=== PATIENT | male | born 1990 | race African-American/Black ===

== ENCOUNTER 2016-10-16 08:14 | Emergency (ER) | payer MEDICAID, OTHER ==
[~2016-10-16] VITALS: Ht 170.2 cm; Wt 68.0 kg
[~2016-10-16 08:14] MED LIST: IBUP-1542 PO
[2016-10-16 08:18] VITALS: Ht 170.2 cm; Wt 68.0 kg
[2016-10-16] MEDS ORDERED: AMOX1TAB10 PO (08:48)
[2016-10-16] MEDS ORDERED: ACET500C5 PO (08:49)
[2016-10-16] MEDS ORDERED: IBUP800T25 PO (09:03)
--- NOTE | 2016-10-16 09:03 | ERD ---
ER Documentation Chief Complaint Date/Time DATE: 10/16/16 TIME: 08:59 Chief Complaint dental pain,gum swelling HPI Patient is a 25-year-old male who presents the ED with right tooth pain x 6 months. He states that he has pain on and off he complains of tooth in his right molar. He denies fever or chills. Denies headache or dizziness. Denies vision pain. Denies pain in his neck. Denies nausea, vomiting or diarrhea. He states that he has not seen a dentist since he is waiting on his insurance to kick in regarding his job. He states that he has pain when he chews on that side. Denies gum pain. ROS All systems reviewed and are negative except as per history of present illness. Medications Home Meds Active Scripts Acetaminophen* (Tylophen*) 500 Mg Capsule, 1 CAP PO Q6H Y for PAIN AND OR ELEVATED TEMP, #20 CAP Prov:BOB GARCIA PA-C 10/16/16 Amoxicillin/Potassium Clav (Amox-Clav 875-125 mg Tablet) 875-125 mg Tab, 1 TAB PO BID for 7 Days, #14 TAB Prov:BOB GARCIA PA-C 10/16/16 Ibuprofen* (Motrin*) 600 Mg Tab, 600 MG PO Q8 for 10 Days, #30 TAB 0 Refills Prov:AUGUSTO GODINEZ PA-C 06/01/16 Allergies Allergies: Coded Allergies: No Known Allergy (Unverified , 10/16/16) PMhx/Soc Medical and Surgical Hx: pt denies Medical Hx, pt denies Surgical Hx History of Surgery: No Anesthesia Reaction: No Hx Neurological Disorder: No Hx Respiratory Disorders: No Hx Cardiac Disorders: No Hx Psychiatric Problems: No Hx Miscellaneous Medical Probl: No Hx Alcohol Use: No Hx Substance Use: Yes (3x/day marijuana use) Hx Tobacco Use: No Smoking Status: Never smoker Physical Exam Vitals Vital Signs Date Time Temp Pulse Resp B/P Pulse Ox O2 Delivery O2 Flow Rate FiO2 10/16/16 08:18 96.8 88 18 128/65 98 Physical Exam GENERAL: Well-developed, well-nourished male. Appears in no acute distress. HEAD: Normocephalic, atraumatic. EYES: Pupils are equally reactive bilaterally. EOMs grossly intact. No conjunctival erythema. ENT: Moist mucous membranes. No uvula deviation. No kissing tonsils. No exudates. pain with tongue depressor test. pain to tooth. no swelling. no cheek or upper molar pain. NECK: Supple. No lymphadenopathy or thyromegaly. No meningismus. negative kernig. negative brudinski. LUNG: Clear to auscultation bilaterally. No rhonchi, wheezing, rales or coarse breath sounds. HEART: Regular rate and rhythm. No murmurs, rubs or gallops. SKIN: Normal color. Warm and dry. No rashes or lesions. Capillary refill < 2 seconds Procedures/MDM ER COURSE: I kept the patient and/or family informed of laboratory and diagnostic imaging results throughout the emergency room course. MEDICAL DECISION MAKING: This is a 25-year-old male who presents with right lower tooth pain. Vital signs were reviewed. Patient is afebrile. Patient is not hypoxic. Patient is not toxic or ill-appearing. Patient likely has tooth pain of uncertain etiology. Low suspicion for necrotizing fasciitis, SJS, toxic epidermal necrolysis, Kawasaki, erythema multiforme, gangrene, scarlet fever, meningococcemia, sepsis, anaphylaxis, sepsis, deep space infection, or foreign body. DISCHARGE: At this time, patient is stable for discharge and outpatient management with no new complaints during the ER course. Patient was sent home with Tylenol, Augmentin and ibuprofen.. A dentist this week. Patient will be discharged home with instructions to recheck for new or worsening symptoms such as fever, nausea , weakness, LOC and to follow up with primary care in the next 1-2 days. Patient was advised to return to the ER for any new or worsening symptoms. Plan was discussed and patient and/or family understands and agrees. Home instructions were given. Departure Diagnosis: Primary Impression: Toothache Condition: Stable Patient Instructions: Dental Pain Referrals: COMMUNITY CLINICS YOU HAVE RECEIVED A MEDICAL SCREENING EXAM AND THE RESULTS INDICATE THAT YOU DO NOT HAVE A CONDITION THAT REQUIRES URGENT TREATMENT IN THE EMERGENCY DEPARTMENT. FURTHER EVALUATION AND TREATMENT OF YOUR CONDITION CAN WAIT UNTIL YOU ARE SEEN IN YOUR DOCTORS OFFICE WITHIN THE NEXT 1-2 DAYS. IT IS YOUR RESPONSIBILITY TO MAKE AN APPOINTMENT FOR FOLOW-UP CARE. IF YOU HAVE A PRIMARY DOCTOR --you should call your primary doctor and schedule an appointment IF YOU DO NOT HAVE A PRIMARY DOCTOR YOU CAN CALL OUR PHYSICIAN REFERRAL HOTLINE AT IF YOU CAN NOT AFFORD TO SEE A PHYSICIAN YOU CAN CHOSE FROM THE FOLLOWING OUR [facility] CL[facility] [address] [facility] [address] [facility] [facility] [address] [facility] [address] [facility] [address] [facility]. [facility]. [address] [facility]SPECIALTIES Additional Instructions: Call your primary care doctor TOMORROW for an appointment during the next 1-2 days.See the doctor sooner or return here if your condition worsens before your appointment time. You need to see a dentist within one week. BOB GARCIA PA-C Oct 16, 2016 09:03
== END 2016-10-16 09:22 | disposition home or self-care (01) ==
LOC: FTE 08:14
DX: K08.89 Other specified disorders of teeth and supporting structures (principal)
CPT/HCPCS: 99283

== ENCOUNTER 2016-11-06 11:48 | Inpatient (IN) | payer OTHER ==
[~2016-11-06] VITALS: Ht 170.2 cm; Wt 65.5 kg
[2016-11-06] VITALS (21 sets, daily range): BP systolic 122–142; BP diastolic 63–75; PULSE 50–64; RESP 16–20; TEMP 98.7; Ht 170.2 cm; Wt 65.5 kg
[~2016-11-06 11:48] MED LIST changes: +ACET500C5 PO; +AMOX1TAB10 PO; +IBUP800T25 PO
[2016-11-06] MEDS ORDERED: SOD CHLORIDE 0.9% 1,000 ML IV STA (13:01)
[2016-11-06] MEDS ORDERED: ONDANSETRON 4 MG INJ IV STA (13:01)
[2016-11-06] MEDS ORDERED: FAMOTIDINE 20 MG INJ IV STA (13:01)
[2016-11-06] MEDS ORDERED: KETOROLAC 30 MG INJ IV STA (13:01)
[2016-11-06 13:39] LABS: ADD SCAN DIFF NO
[2016-11-06 13:43] LABS: BASOPHIL # 0.1 10^3/ul (0.0-0.1); BASOPHILS % 0.4 % (0.0-2.0); EOSINOPHILS % 0.2 % (0.0-7.0); HEMATOCRIT 45.6 % (42.0-52.0); HEMOGLOBIN 15.3 g/dl (14.0-18.0); LYMPHOCYTES # 1.8 10^3/ul (0.8-2.9); LYMPHOCYTES % 15.5 % (15.0-51.0); MEAN CORPUSCULAR HEMOGLOBIN 29.1 pg (29.0-33.0); MEAN CORPUSCULAR HGB CONC 33.6 g/dl (32.0-37.0); MEAN CORPUSCULAR VOLUME 86.7 fl (82.0-101.0); MEAN PLATELET VOLUME 9.6 fl (7.4-10.4); MONOCYTE # 0.6 10^3/ul (0.3-0.9); MONOCYTES % 5.4 % (0.0-11.0); NEUTROPHIL # 9.2 10^3/ul (1.6-7.5); NEUTROPHILS % 78.2 % (39.0-77.0); PLATELET COUNT 393 10^3/UL (140-415); RED BLOOD COUNT 5.26 10^6/ul (4.70-6.10); RED CELL DISTRIBUTION WIDTH 12.1 % (11.5-14.5); WHITE BLOOD COUNT 11.8 10^3/ul (4.8-10.8)
[2016-11-06 13:46] LABS: ADD UMIC NO; URINE BILIRUBIN (Dip) 1+ (NEGATIVE); URINE BLOOD (Dip) NEGATIVE (NEGATIVE); URINE COLOR YELLOW (YELLOW); URINE GLUCOSE (Dip) NEGATIVE (NEGATIVE); URINE KETONES (Dip) 15 (NEGATIVE); URINE LEUKOCYTE ESTERASE (Dip) NEGATIVE (NEGATIVE); URINE NITRITE (Dip) NEGATIVE (NEGATIVE); URINE TOTAL PROTEIN (Dip) NEGATIVE (NEGATIVE); URINE UROBILINOGEN (Dip) 0.2 E.U./dL (0.1-1.0)
[2016-11-06 13:51] LABS: POTASSIUM 3.9 mmol/L (3.5-5.1)
[2016-11-06 13:53] LABS: ALBUMIN/GLOBULIN RATIO 1.28; BILIRUBIN,INDIRECT 0.6 mg/dl (0-1.1); BILIRUBIN,TOTAL 0.6 mg/dl (0.2-1.3); CREATININE 1.13 mg/dl (0.61-1.24); TOTAL PROTEIN 8.9 g/dl (6.1-8.1)
[2016-11-06 13:54] LABS: CALCIUM 10.2 mg/dl (8.4-10.2)
[2016-11-06 13:58] LABS: ICTOTEST POSITIVE (NEGATIVE)
--- NOTE | 2016-11-06 14:07 | RADRPT ---
PROCEDURE: CT Abdomen and Pelvis without contrast. CLINICAL INDICATION: Abdominal pain. Nausea and vomiting. TECHNIQUE: CT scan of the abdomen and pelvis without contrast was performed on a multi-slice CT sc [facility] without intravenous contrast. Coronal and sagittal reformatted images were obtained from the axial source images. Images were reviewed on a high-resolution PACS workstation. One or more of the following does reduction techniques were used: Automated exposure control; adjustment of the mA an d/or kV according to patient size; use of the aorta of reconstruction technique. The total exam CTD I equals 5.81 mGy and the total exam DLP equals 311.25 mGy-cm. COMPARISON: None available. FINDINGS: The lung bases are clear. Heart size is normal, and there is no evidence of pericardial thickening or effusion. Evaluation of the abdominal contents is limited by lack of intravenous and oral contrast combined wi th paucity of abdominal fat The liver, spleen, and pancreas are normal given limitations of a noncontrast CT examination. The g allbladder is normal. The adrenal glands are normal. The kidneys without renal calculus or hydronephrosis. The aorta is of normal caliber. There is no retroperitoneal lymph node enlargment. There is no evidence of large or small bowel obstruction. There is scattered contrast within the co cedric likely from recent oral administration. There is an appendicolith in the right lower quadrant. The appendix appears distended and thick-walled measuring up to 1.3 cm, best seen on coronal imagin g. There are no obvious adjacent inflammatory changes, however there is suggestion of subtle periap pendiceal inflammation. There is small to moderate pelvic free fluid. No enlarged pelvic sidewall lymph nodes are seen. The bladder is decompressed and collapsed. Ther e is small to moderate pelvic free fluid. The inguinal regions are unremarkable. The bones are intact. IMPRESSION: 1. Study limited by lack of intravenous and oral contrast combined with paucity of abdominal fat. 2. Right lower quadrant appendicolith with associated dilated, fluid-filled, and thick-walled appen jazmin. No obvious adjacent inflammatory changes are present, however there is mild to moderate pelvic free fluid, likely reactive in nature. These findings are compatible with acute appendicitis in th e appropriate clinical setting. If clinical presentation is equivocal, consider repeating CT with i ntravenous and oral contrast. 3. Contrast identified within the colon likely from recent oral administration. Recommend correlat ion with recent outside imaging. RPTAT: KK .Neptali Merida MD, MD Date Time Electronically viewed and signed by .Neptali Merida MD, MD on 11/06/2016 14:07 .B/
[2016-11-06] MEDS ORDERED: ERTAPENEM SODIUM 1 GM in SOD CHLORIDE 0.9% 100 ML IVPB ONE (15:00)
[2016-11-06] MEDS ORDERED: SOD CHLORIDE 0.9% 1,000 ML IV SCH (18:38)
[2016-11-06] MEDS ORDERED: ACETAMINOPHEN 325 MG TAB PO PRN ×2 (19:00)
[2016-11-06] MEDS ORDERED: ALBUTEROL/IPRATROPIUM (NEB) 3 ML AMP HHN PRN (19:00)
[2016-11-06] MEDS ORDERED: ONDANSETRON 4 MG INJ IV PRN ×2 (19:00)
[2016-11-06] MEDS ORDERED: NACL 0.9% 3 ML SYG IV SCH (19:00)
[2016-11-06] MEDS ORDERED: hydrALAzine 20 MG INJ IV PRN (19:00)
[2016-11-06] MEDS ORDERED: DOCUSATE SODIUM 100 MG CAP PO PRN (19:00)
[2016-11-06] MEDS ORDERED: MAGNESIUM HYDROXIDE 30ML CUP PO PRN (19:00)
[2016-11-06] MEDS ORDERED: LORAZEPAM 2 MG INJ IV PRN (19:00)
[2016-11-06] MEDS ORDERED: NA PHOSPHATE/BIPHOS 133 ML ENEMA PR PRN (19:00)
[2016-11-06] MEDS ORDERED: NITROGLYCERIN (SL) 0.4 MG TAB SL PRN (19:00)
[2016-11-06 19:22] LABS: INR 1.11; PROTIME 14.3 Sec (12.2-14.2); PT RATIO 1.1
--- NOTE | 2016-11-06 19:27 | ERD ---
ER Documentation Chief Complaint Date/Time DATE: 11/06/16 TIME: 19:23 Chief Complaint AP STARTED X 1 WEEK AGO N/V HPI This patient is a 25-year-old male with no significant medical history presenting to the emergency department for nausea and vomiting ongoing for the past 3 days. The patient had 3 episodes of vomiting today which was yellow in color. The patient also reports right lower quadrant pain which is been ongoing for the past week and has been worsening progressively. The patient took Vicodin which he had from a past prescription which mildly relieved his symptoms. The patient denies any chest pain, shortness of breath, fevers, or other specific symptoms. ROS All systems reviewed and are negative except as per history of present illness. Medications Home Meds Active Scripts Ibuprofen* (Motrin*) 800 Mg Tab, 800 MG PO Q6, #30 TAB Prov:BOB GARCIA PA-C 10/16/16 Acetaminophen* (Tylophen*) 500 Mg Capsule, 1 CAP PO Q6H Y for PAIN AND OR ELEVATED TEMP, #20 CAP Prov:BOB GARCIA PA-C 10/16/16 Amoxicillin/Potassium Clav (Amox-Clav 875-125 mg Tablet) 875-125 mg Tab, 1 TAB PO BID for 7 Days, #14 TAB Prov:BOB GARCIA PA-C 10/16/16 Ibuprofen* (Motrin*) 600 Mg Tab, 600 MG PO Q8 for 10 Days, #30 TAB 0 Refills Prov:AUGUSTO GODINEZ PA-C 06/01/16 Allergies Allergies: Coded Allergies: No Known Allergy (Unverified , 10/16/16) PMhx/Soc Medical and Surgical Hx: pt denies Medical Hx, pt denies Surgical Hx History of Surgery: No Anesthesia Reaction: No Hx Neurological Disorder: No Hx Respiratory Disorders: No Hx Cardiac Disorders: No Hx Psychiatric Problems: No Hx Miscellaneous Medical Probl: No Hx Alcohol Use: No Hx Substance Use: Yes (3x/day marijuana use) Hx Tobacco Use: No Smoking Status: Never smoker FmHx Noncontributory for chief complaint Physical Exam Vitals Vital Signs Date Time Temp Pulse Resp B/P Pulse Ox O2 Delivery O2 Flow Rate FiO2 11/06/16 19:15 98.7 53 19 145/78 100 Room Air 11/06/16 17:20 98.4 93 14 126/82 100 Room Air 11/06/16 11:49 97.4 54 18 124/71 100 Physical Exam Const: Resting comfortably in no acute distress Head: Atraumatic Eyes: Normal Conjunctiva ENT: Normal External Ears, Nose and Mouth. Neck: Full range of motion..~ No meningismus. Resp: Clear to auscultation bilaterally Cardio: Regular rate and rhythm, no murmurs Abd: There is right lower quadrant tenderness to palpation with rebound and guarding. Positive Rovsing sign. Positive obturator sign. Skin: No petechiae or rashes Back: No midline or flank tenderness Ext: No cyanosis, or edema Neur: Awake and alert Psych: Normal Mood and Affect Result Diagram: 11/06/16 1320 11/06/16 1320 Results 24 hrs Laboratory Tests Test 11/06/16 13:15 11/06/16 13:20 11/06/16 18:50 Urine Bilirubin 1+ Urine Clarity CLEAR Urine Color YELLOW Urine Glucose NEGATIVE% Urine Hemoglobin NEGATIVE Urine Ictotest POSITIVE Urine Ketones 15 Urine Leukocyte Esterase NEGATIVE Urine Nitrite NEGATIVE Urine Specific [place] 1.025 Urine Total Protein NEGATIVE Urine Urobilinogen 0.2 E.U./dL Urine pH 6.0 Alanine Aminotransferase (ALT/SGPT) 22IU/L Albumin 5.0g/dl Albumin/Globulin Ratio 1.28 Alkaline Phosphatase 70IU/L Anion Gap 25 Aspartate Amino Transf (AST/SGOT) 24IU/L Basophils # 0.110^3/ul Basophils % 0.4% Blood Urea Nitrogen 16mg/dl Calcium Level 10.2mg/dl Carbon Dioxide Level 27mmol/L Chloride Level 101mmol/L Creatinine 1.13mg/dl Direct Bilirubin 0.00mg/dl Eosinophils # 0.010^3/ul Eosinophils % 0.2% Globulin 3.90g/dl Glucose Level 76mg/dl Hematocrit 45.6% Hemoglobin 15.3g/dl Indirect Bilirubin 0.6mg/dl Lipase 56U/L Lymphocytes # 1.810^3/ul Lymphocytes % 15.5% Mean Corpuscular Hemoglobin 29.1pg Mean Corpuscular Hemoglobin Concent 33.6g/dl Mean Corpuscular Volume 86.7fl Mean Platelet Volume 9.6fl Monocytes # 0.610^3/ul Monocytes % 5.4% Neutrophils # 9.210^3/ul Neutrophils % 78.2% Nucleated Red Blood Cells # 0.010^3/ul Nucleated Red Blood Cells % 0.0/100WBC Platelet Count 95381^3/UL Potassium Level 3.9mmol/L Red Blood Count 5.2610^6/ul Red Cell Distribution Width 12.1% Sodium Level 149mmol/L Total Bilirubin 0.6mg/dl Total Protein 8.9g/dl White Blood Count 11.810^3/ul Activated Partial Thromboplast Time Pending INR International Normalized Ratio 1.11 Prothrombin Time 14.3Sec Prothrombin Time Ratio 1.1 Current Medications Medications (Trade) Dose Ordered Sig/Brady Route PRN Reason Start Time Stop Time Status Last Admin Dose Admin Sodium Chloride (NS) 1,000 ml @ 1,000 mls/hr Q1H STAT IV 11/06/16 13:01 11/06/16 14:00 DC 11/06/16 13:20 Ondansetron HCl (Zofran Inj) 4 mg ONCE STAT IV 11/06/16 13:01 11/06/16 13:04 DC 11/06/16 13:20 Famotidine (Pepcid Iv) 20 mg ONCE STAT IV 11/06/16 13:01 11/06/16 13:04 DC 11/06/16 13:20 Ketorolac Tromethamine 30 mg 30 mg ONCE STAT IV 11/06/16 13:01 11/06/16 13:04 DC 11/06/16 13:20 Ertapenem/Sodium Chloride (Invanz/NS) 100 ml @ 200 mls/hr ONCE ONCE IVPB 11/06/16 15:00 11/06/16 15:29 DC 11/06/16 14:54 IV Flush (NS 3 ml) 3 ml PER PROTOCOL IV 11/06/16 19:00 Ondansetron HCl (Zofran Inj) 4 mg Q6H PRN IV NAUSEA AND/OR VOMITING 11/06/16 19:00 Acetaminophen (Tylenol Tab) 650 mg Q6H PRN PO PAIN LEVEL 1-3 OR FEVER 11/06/16 19:00 Acetaminophen/ Hydrocodone Bitart (Kenvil (5/325)) 1 tab Q6H PRN PO MODERATE PAIN LEVEL 4-6 11/06/16 19:00 Morphine Sulfate (morphine) 2 mg Q4H PRN IV SEVERE PAIN LEVEL 7-10 11/06/16 19:00 Docusate Sodium (Colace) 100 mg Q12H PRN PO CONSTIPATION 11/06/16 19:00 Magnesium Hydroxide (Milk Of Mag) 30 ml DAILY PRN PO CONSTIPATION 11/06/16 19:00 Sodium Biphosphate/ Sodium Phosphate (Fleet Enema) 133 ml DAILY PRN TN CONSTIPATION 11/06/16 19:00 Pantoprazole (Protonix Tab) 40 mg DAILY@06 PO 11/07/16 06:00 Heparin Sodium (Porcine) 5000 unit 5,000 unit Q12 SC 11/06/16 21:00 Sodium Chloride (1/2 NS) 1,000 ml @ 75 mls/hr [id number] IV 11/06/16 18:33 Lorazepam (Ativan) 0.5 mg Q6H PRN IV ANXIETY 11/06/16 19:00 Albuterol/ Ipratropium 3 ml 3 ml Q4H RESP THERAPY PRN HHN SHORTNESS OF BREATH 11/06/16 19:00 Piperacillin Sod/ Tazobactam Sod (Zosyn 3.375gm/ 100 ml (Pmx)) 100 ml @ 200 mls/hr Q6 IVPB 11/07/16 00:00 Hydralazine HCl (Apresoline) 10 mg Q6H PRN IV ELEVATED BLOOD PRESSURE 11/06/16 19:00 Clonidine (Catapres) 0.1 mg Q6H PRN PO ELEVATED BLOOD PRESSURE 11/06/16 19:00 Nitroglycerin 1 tab 1 tab Q5M PRN SL ANGINA 11/06/16 19:00 Sodium Chloride (NS) 1,000 ml @ 80 mls/hr [id number] IV 11/06/16 18:38 11/07/16 07:07 Ondansetron HCl (Zofran Inj) 4 mg BRIDGE ORDER PRN IV NAUSEA AND/OR VOMITING 11/06/16 19:00 11/07/16 18:59 Acetaminophen (Tylenol Tab) 650 mg ER BRIDGE PRN PO MILD PAIN/FEVER 11/06/16 19:00 11/07/16 18:59 Procedures/[facility] EMERGENCY DEPARTMENT COURSE / MEDICAL DECISION MAKING: This is a 25-year-old male who comes to the emergency room secondary to complaints of abdominal pain, nausea, vomiting. The patient was given IV fluids, IV antibiotics, IV Zofran, IV Toradol in the department. On re-evaluation, the patient was feeling improved. Lab results reviewed and showed slight leukocytosis with left shift. There were no signs of anemia. Sodium was slightly elevated but not marked. UA results reviewed and showed no signs of acute urinary tract infection. Radiology: PROCEDURE: CT Abdomen and Pelvis without contrast. CLINICAL INDICATION: Abdominal pain. Nausea and vomiting. TECHNIQUE: CT scan of the abdomen and pelvis without contrast was performed on a multi-slice CT scanner without intravenous contrast. Coronal and sagittal reformatted images were obtained from the axial source images. Images were reviewed on a high-resolution PACS workstation. One or more of the following does reduction techniques were used: Automated exposure control; adjustment of the mA and/or kV according to patient size; use of the aorta of reconstruction technique. The total exam CTDI equals 5.81 mGy and the total exam DLP equals 311.25 mGy-cm. COMPARISON: None available. FINDINGS: The lung bases are clear. Heart size is normal, and there is no evidence of pericardial thickening or effusion. Evaluation of the abdominal contents is limited by lack of intravenous and oral contrast combined with paucity of abdominal fat The liver, spleen, and pancreas are normal given limitations of a noncontrast CT examination. The gallbladder is normal. The adrenal glands are normal. The kidneys without renal calculus or hydronephrosis. The aorta is of normal caliber. There is no retroperitoneal lymph node enlargment. There is no evidence of large or small bowel obstruction. There is scattered contrast within the colon likely from recent oral administration. There is an appendicolith in the right lower quadrant. The appendix appears distended and thick-walled measuring up to 1.3 cm, best seen on coronal imaging. There are no obvious adjacent inflammatory changes, however there is suggestion of subtle periappendiceal inflammation. There is small to moderate pelvic free fluid. No enlarged pelvic sidewall lymph nodes are seen. The bladder is decompressed and collapsed. There is small to moderate pelvic free fluid. The inguinal regions are unremarkable. The bones are intact. IMPRESSION: 1. Study limited by lack of intravenous and oral contrast combined with paucity of abdominal fat. 2. Right lower quadrant appendicolith with associated dilated, fluid-filled, and thick-walled appendix. No obvious adjacent inflammatory changes are present , however there is mild to moderate pelvic free fluid, likely reactive in nature. These findings are compatible with acute appendicitis in the appropriate clinical setting. If clinical presentation is equivocal, consider repeating CT with intravenous and oral contrast. 3. Contrast identified within the colon likely from recent oral administration. Recommend correlation with recent outside imaging. RPTAT: KK .Neptali Merida MD, MD Date Time Electronically viewed and signed by .Neptali Merida MD, MD on 2016 14:07 The primary diagnosis is appendicitis. Care for this patient was discussed with and assumed by Dr. Huerta, attending ED physician. Dr. Huerta spoke with the admitting physician and the surgeon. Departure Diagnosis: Primary Impression: Acute appendicitis Additional Impression: Nausea & vomiting MARYJANE ANDERSON PA-C Nov 06, 2016 19:27
--- NOTE | 2016-11-06 19:53 | HP ---
DATE OF ADMISSION: 11/06/2016 CHIEF COMPLAINT: Abdominal pain. HISTORY OF PRESENT ILLNESS: A 25-year-old male, no significant past medical history. He has been h aving 1 week of abdominal pain getting progressively worse. He also had some nausea and vomiting sy mptoms, nonbilious, nonbloody. Symptoms became worse over the last 3 days. He has never had these symptoms before. No headaches, dizziness, loss of consciousness. No upper or lower GI bleeding, no diarrhea, no constipation. No fevers or chills. When he came in, he had a CT scan abdomen and pel vis performed that does show acute appendicitis, and the surgeon was called to come evaluate the pat ient, which is pending. PAST MEDICAL HISTORY: Stated above. ALLERGIES: NO KNOWN DRUG ALLERGIES. HOME MEDICINES: None. PAST SURGICAL HISTORY: None. FAMILY HISTORY: Noncontributory. SOCIAL HISTORY: Negative for smoking, drinking, IV drug abuse. PHYSICAL EXAMINATION: VITAL SIGNS: T-max 98.4, pulse 54 to 92, respirations 14 to 18, blood pressure is 126/82, saturatin g 100% on room air. GENERAL: The patient lying in bed, answering questions. No acute distress. HEENT: Pupils equal, round, react to light. Extraocular muscles intact. NECK: Supple. No thyromegaly. LUNGS: Clear to auscultation bilaterally. CARDIOVASCULAR: S1, S2 heard. No rubs, gallops. ABDOMEN: There is tenderness to palpation in epigastric area. MUSCULOSKELETAL: No lower extremity edema bilaterally. NEUROLOGIC: No focal deficits. LABORATORIES: WBC 11.8. The rest of the CBC is normal. Sodium 149. The rest of the comprehensive metabolic panel is essentially normal. His lipase is 56. UA shows negative nitrites, negative paramjit kocyte esterase. IMAGING: Again, CT abdomen and pelvis shows specifically right lower quadrant appendicolith with as sociated dilated, fluid-filled, thick-walled appendix. No obvious adjacent inflammatory changes are present, but there is mild to moderate pelvic free fluid, likely reactive in nature compatible with acute appendicitis. ASSESSMENT AND PLAN: A 25-year-old male coming in with abdominal pain for 1 week, nausea, vomiting with signs of acute appendicitis. 1. Abdominal pain secondary to acute appendicitis. Admit him to med/surg floor. Will get a genera l surgery consult, give him antiemetic medicines and pain control medications as well. We will chec k TSH, A1c, lipid panel. 2. For gastrointestinal prophylaxis, PPI. Deep venous thrombosis prophylaxis, heparin subcutaneous ly. Dictated By: OLIVIA HENDRICKSON Conf#: [id number] DID#: [id number]
[2016-11-06] MEDS ORDERED: BUPIVACAINE 0.25%/EPI (SDV) 30 ML INJ ONE (20:37)
[2016-11-06] MEDS ORDERED: LIDOCAINE 1% (MPF) 30 ML INJ ONE (20:37)
[2016-11-06] MEDS ORDERED: FENTAnyl 50 MCG/ML VIAL ONE (20:46)
--- NOTE | 2016-11-06 20:50 | CONS ---
DATE OF ADMISSION: 11/06/2016 DATE OF CONSULTATION: 11/06/2016 TYPE OF CONSULTATION: Surgical. REFERRING PHYSICIAN: Kaleigh Davison DO CHIEF COMPLAINT 1. Abdominal pain. 2. Appendicitis with possible perforation. 3. Leukocytosis. 4. Hypernatremia. HISTORY OF PRESENT ILLNESS: Mr. Gerda Gardner is a 25-year-old male, otherwise mostly healthy, wh o presents with a week of abdominal pain that has worsened over the past few days, associated with n ausea, vomiting and chills. No fevers. No chest pain or shortness of breath. No visual or neurolo gic changes. No dysuria. Bowel function present. No trauma. No sick contacts. No previous histo ry of the same. No blood per mouth or rectum. In the emergency room, he was found to be afebrile with stable and normal vitals; however, with mild leukocytosis and CT diagnosis of acute appendicitis with appendicolith and fluid in the pelvis. Izaguirre rgical consult is obtained and patient is admitted on antibiotics. PAST MEDICAL HISTORY 1. Right knee injury. 2. Abdominal pain times a week. 3. Nausea, vomiting times a week. 4. Mild leukocytosis. 5. Acute appendicitis. 6. Fluid in the pelvis with possible appendiceal perforation and abscess. 7. Hypernatremia. PAST SURGICAL HISTORY: Denies. MEDICATIONS: Denies. ALLERGIES: DENIES. SOCIAL HISTORY: Smokes a joint of marijuana 3 times a week. No other recreational drugs. No tobac co. Her social EtOH. FAMILY HISTORY: Noncontributory. REVIEW OF SYSTEMS: A 12-point review of systems negative unless addressed in HPI. PHYSICAL EXAMINATION VITAL SIGNS: Temperature 98.7, pulse 53, blood pressure ____ , satting 100% on room air. GENERAL: In no acute distress, comfortable, pleasant. HEENT: Pupils equal, reactive. No scleral icterus. Mucous membranes are moist. NECK: Supple. No JVD. Trachea midline. PULMONARY: Normal respiratory effort. No wheezing. CARDIAC: S1, S2 present. ABDOMEN: Soft, tender diffusely, mostly in the right lower quadrant. No guarding. No rebound. EXTREMITIES: No edema. VASCULAR: Cap refill less than 2 seconds. NEUROLOGIC: Alert, oriented, moves all extremities grossly. LABORATORY AND RADIOGRAPHIC: As per chart and HPI. ASSESSMENT AND PLAN Mr. Gerda Gardner is a 25-year-old male: 1. Abdominal pain with leukocytosis and CT findings are suggestive of acute appendicitis, with an a ppendicolith, probable perforation and questionable abscess. Continue antibiotics, IV fluids and we will proceed with appendectomy, washout, and possible drain placement. 2. Hypernatremia, probably dehydration. Continue judicious fluid management. 3. Regular marijuana smoker. The patient is encouraged to minimize use. Thank you very much for consulting me in this patient's care. Dictated By: KENYON HOLT/BARRON Conf#: [id number] DID#: [id number] CC: KALEIGH DAVISON DO;*End*
[2016-11-06] MEDS ORDERED: FENTAnyl 50 MCG/ML VIAL IV PRN ×2 (21:30)
[2016-11-06] MEDS ORDERED: MEPERIDINE 25 MG INJ IV PRN (21:30)
[2016-11-06] MEDS ORDERED: DIPHENHYDRAMINE 50 MG INJ IV PRN (21:30)
[2016-11-06] MEDS ORDERED: HYDROmorphONE (0.2 MG/ML) 10ML SYG IV PRN ×3 (21:30)
[2016-11-06] MEDS ORDERED: ROPIVACAINE 0.5 % 30 ML VIAL ONE (21:36)
[2016-11-06] MEDS ORDERED: ROCURONIUM 50 MG INJ ONE (21:36)
[2016-11-06] MEDS ORDERED: PROPOFOL 20 ML ONE (21:36)
[2016-11-06] MEDS ORDERED: GLYCOPYRROLATE 0.4 MG INJ ONE (21:36)
[2016-11-06] MEDS ORDERED: NEOSTIGMINE 3 MG/3 ML SYRINGE ONE (21:36)
[2016-11-06] MEDS ORDERED: SUCCINYLCHOLINE CHLORIDE 100 MG/5 ML SYG IV ONE (21:36)
[2016-11-06] MEDS ORDERED: LIDOCAINE 2% (SDV) 5 ML INJ ONE (21:36)
[2016-11-06] MEDS: SOD CHLORIDE 0.45% 1,000 ML IV SCH (23:43)
[2016-11-06] MEDS: PIPER-TAZO 3.375 GM IV (PMX) 100 ML IVPB SCH (23:44)
[2016-11-06] MEDS: HEPARIN 5,000 UNIT/0.5 ML SYG SC SCH (23:48)
[2016-11-07] VITALS (7 sets, daily range): BP systolic 104–127; BP diastolic 51–69; PULSE 53–65; RESP 16–19
[2016-11-07] MEDS: PIPER-TAZO 3.375 GM IV (PMX) 100 ML IVPB SCH ×4 (05:37→23:57)
[2016-11-07] MEDS: PANTOPRAZOLE (EC) 40 MG TAB PO SCH (05:38)
[2016-11-07] MEDS: HYDROCODONE/APAP (5/325) TAB PO PRN ×3 (05:42→20:02)
[2016-11-07 06:26] LABS: ALBUMIN 3.5 g/dl (3.3-4.9); POTASSIUM 4.1 mmol/L (3.5-5.1)
[2016-11-07 06:27] LABS: ADD SCAN DIFF NO
[2016-11-07 06:28] LABS: BILIRUBIN,INDIRECT 0.8 mg/dl (0-1.1); BILIRUBIN,TOTAL 0.8 mg/dl (0.2-1.3); CREATININE 1.22 mg/dl (0.61-1.24)
[2016-11-07 06:29] LABS: CALCIUM 8.7 mg/dl (8.4-10.2)
[2016-11-07 06:43] LABS: CHOL/HDL RATIO 2.4 RATIO
[2016-11-07] MEDS: morphine 2 MG INJ IV PRN ×3 (06:48→17:52)
[2016-11-07 06:59] LABS: MAGNESIUM 1.6 mg/dl (1.7-2.5)
--- NOTE | 2016-11-07 07:05 | OPR ---
DATE OF OPERATION: 11/06/2016 ____ PREOPERATIVE DIAGNOSIS: Acute appendicitis with possible perforation. POSTOPERATIVE DIAGNOSIS: Acute appendicitis. OPERATION PERFORMED: 1. Laparoscopic appendectomy. 2. Local anesthetic injection, 235[address]. SURGEON: Kenyon Orlando MD LICENSE ISSUER: None. ANESTHESIA: Local, regional and general. ANESTHESIOLOGIST: Kvng Umaña MD COMPLICATIONS: None. SPECIMEN: Appendix. ESTIMATED BLOOD LOSS: 5 mL PROSTHETICS: None. DRAINS: None. INDICATION: Per consultation note. Risks, benefits, alternatives were fully explained as my usual and customary. The patient has risk of recurrence of infection, abscess, leak, hematoma, seroma, he rnia formation, bowel injury, bladder injury, any other injuries in the abdomen, need for reoperatio ns or procedures, heart attack, stroke, PE, DVT, pneumonia, organ failures or . He understands and elected to proceed with surgery. DISPOSITION: Tolerated procedure well, extubated, transferred to recovery room in stable condition. All counts were correct at the end of the operation x2. PROCEDURE NOTE: The patient was brought in, placed supine on the operating table. SCDs were placed , preoperative antibiotics administered, and after induction of anesthesia, his left arm was tucked. All pressure points were well padded, and then he was prepped and draped in usual sterile fashion, and time-out was performed. He had already received antibiotics. Local anesthetic was injected at the incision sites. Incision was made supraumbilically, and a Casi ss needle was safely placed into the abdomen, and after negative ____ test, abdomen was insufflated to 15 mmHg with CO2. Laparoscopy was performed. No injuries were identified. Under direct visuali zation, another 5 was placed in left lower quadrant and 12 in suprapubic region. That port avoided the bladder widely. At the end of the operation, bilateral TAP procedure was performed by Anesthesia. The patient was placed in Trendelenburg and right side up, and investigation of the abdomen identifi ed some serous fluid in the pelvis. Appendix was enlarged. The base of the appendix and portion of the cecum where somewhat thickened and inflamed. However, at the base of the appendix, I did not i dentify any tumors or masses or obstruction that would deter me from using a stapler here. At this point, the mesoappendix was transected with a white load stapler with full hemostasis. The base of the appendix was also transected with a stapler with full formation of the sudhir. There was no ab normality identified. No separation identified. The sudhir were well taken. Appendix was placed in EndoCatch bag, removed through the suprapubic port site, and eventually that port site was closed with Endo Close and 0 Vicryl in a reofrz-kg-[id number] manner. The patient was placed flat. Investigation did not identify any injuries. The fluid had already be en suctioned out. The patient does not have any omentum. Ports and CO2 were removed under direct v isualization. There was no bleeding. Wounds were thoroughly irrigated, and skin was closed with 4- 0 Monocryl in subcuticular fashion, then covered with Dermabond. The patient was extubated after TA P procedure and taken back to recovery in stable condition. All counts were correct at the end of t he operation x2. Dictated By: KENYON HOLT/BARRON Conf#: [id number] DID#: [id number]
[2016-11-07 07:06] LABS: THYROID STIMULATING HORMONE 0.942 MIU/L (0.465-4.680)
[2016-11-07] MEDS: SOD CHLORIDE 0.45% 1,000 ML IV SCH ×2 (07:53→17:51)
[2016-11-07] MEDS: HEPARIN 5,000 UNIT/0.5 ML SYG SC SCH ×2 (08:52→21:05)
[2016-11-07] MEDS ORDERED: MAGNESIUM SULFATE 1 GM/D5W 100 ML IVPB ONE (09:00)
--- NOTE | 2016-11-07 09:32 | PDOCDIS ---
Discharge Instructions CONDITION Patient Condition: Stable HOME CARE INSTRUCTIONS: Special Diet: regular diet ACTIVITY: Activity Restrictions: Slowly Increase Activity FOLLOW UP/APPOINTMENTS Appointments Take your medications, see your doctor in clinic in 1 week. OLIVIA GILLIS Nov 07, 2016 09:32
[2016-11-07] MEDS ORDERED: ONDA-43 PO (09:43)
[2016-11-07] MEDS ORDERED: AMOX1TAB10 PO (09:43)
[2016-11-07] MEDS ORDERED: HYDR-906 PO (09:43)
[2016-11-07 10:30] LABS: BASOPHILS % 0.3 % (0.0-2.0); EOSINOPHILS % 0.3 % (0.0-7.0); HEMOGLOBIN 12.3 g/dl (14.0-18.0); LYMPHOCYTES # 2.3 10^3/ul (0.8-2.9); LYMPHOCYTES % 20.5 % (15.0-51.0); MEAN CORPUSCULAR HEMOGLOBIN 29.1 pg (29.0-33.0); MEAN CORPUSCULAR HGB CONC 33.2 g/dl (32.0-37.0); MEAN CORPUSCULAR VOLUME 87.7 fl (82.0-101.0); MEAN PLATELET VOLUME 10.3 fl (7.4-10.4); MONOCYTE # 0.7 10^3/ul (0.3-0.9); MONOCYTES % 6.5 % (0.0-11.0); NEUTROPHIL # 8.2 10^3/ul (1.6-7.5); PLATELET COUNT 333 10^3/UL (140-415); RED BLOOD COUNT 4.22 10^6/ul (4.70-6.10); RED CELL DISTRIBUTION WIDTH 12.2 % (11.5-14.5); WHITE BLOOD COUNT 11.4 10^3/ul (4.8-10.8)
--- NOTE | 2016-11-07 18:58 | PN ---
Date/Time of Note Date/Time of Note DATE: 11/07/16 TIME: 18:55 Assessment/Plan Lines/Catheters IV C[facility]ter Type (from [facility]): Peripheral IV Assessment/Plan Chief Complaint/Hosp Course 1. Abdominal pain with leukocytosis and CT findings are suggestive of acute appendicitis, with an appendicolith s/p lap appy 11/06. -antibiotics -fluids -pain control -ice pack -advance diet as tolerated 2. Hypernatremia resolved 3. Regular daily marijuana smoker. The patient is encouraged to minimize use. Thank you Problems: Subjective 24 Hr Interval Summary Flatus. Pain. No f/c/n/v/cp/sob/cough/bleed/sz/rash/da/visual or neuro changes. No dysuria. Bowel function. Exam/Review of Systems Vital Signs Vitals Vital Signs Date Time Temp Pulse Resp B/P Pulse Ox O2 Delivery O2 Flow Rate FiO2 11/07/16 19:55 98.3 53 18 115/67 99 Room Air Intake and Output 11/06/16 11/06/16 11/07/16 15:00 23:00 07:00 Intake Total 300 ml 770 ml Output Total 5 ml Balance 295 ml 770 ml Exam Free Text/Dictation GENERAL: In no acute distress, comfortable, pleasant. HEENT: Pupils equal, reactive. No scleral icterus. Mucous membranes are moist. NECK: Supple. No JVD. Trachea midline. PULMONARY: Normal respiratory effort. No wheezing. CARDIAC: S1, S2 present. ABDOMEN: Soft, min tender. No guarding. No rebound. EXTREMITIES: No edema. VASCULAR: Cap refill less than 2 seconds. NEUROLOGIC: Alert, oriented, moves all extremities grossly. Results Result Diagram: 11/07/16 0545 11/07/16 0545 KENYON LEES MD Nov 07, 2016 18:58
[2016-11-07] MEDS ORDERED: HYDROmorphONE 1 MG/ML SYG IV PRN (21:30)
[2016-11-08] MEDS: HYDROCODONE/APAP (5/325) TAB PO PRN ×2 (01:59→08:20)
[2016-11-08 06:09] LABS: ALBUMIN 3.1 g/dl (3.3-4.9); POTASSIUM 3.9 mmol/L (3.5-5.1)
[2016-11-08 06:11] LABS: CREATININE 1.23 mg/dl (0.61-1.24)
[2016-11-08] MEDS: PIPER-TAZO 3.375 GM IV (PMX) 100 ML IVPB SCH ×2 (06:11→11:18)
[2016-11-08] MEDS: PANTOPRAZOLE (EC) 40 MG TAB PO SCH (06:11)
[2016-11-08 06:12] LABS: ALBUMIN/GLOBULIN RATIO 1.19; BILIRUBIN,INDIRECT 0.3 mg/dl (0-1.1); BILIRUBIN,TOTAL 0.3 mg/dl (0.2-1.3); CALCIUM 8.7 mg/dl (8.4-10.2); TOTAL PROTEIN 5.7 g/dl (6.1-8.1)
[2016-11-08 07:28] VITALS: BP 108/56; RESP 24
--- NOTE | 2016-11-08 07:48 | DS ---
DATE OF ADMISSION: 11/07/2016 DATE OF DISCHARGE: HISTORY OF PRESENT ILLNESS: A 25-year-old male who presented on 11/06/2016 with abdominal pain. HOSPITAL COURSE: He was admitted to med/surg floor, seen by general surgery team and underwent a la paroscopic appendectomy secondary to findings of appendicitis. He had some leukocytosis on admissio n which was improving by the time of discharge, he was able to tolerate a p.o. diet and ambulate. Mi melissa had been having some abdominal pain today, minimal, but if he continues to tolerate his diet and i s cleared by surgery team, he will be discharged home today in improved condition. DISCHARGE MEDICATIONS: If he goes, he will be sent with" 1. [place] 5/325 one tab p.o. q.6h. p.r.n. 2. Zofran 4 mg p.o. q.6h. p.r.n. 3. He will continue Augmentin at 875/125 one tab p.o. b.i.d. for 7 more days. FOLLOWUP: He will need to follow up with primary care doctor and general surgery team in the clinic in the next 1 to 2 weeks. FINAL DIAGNOSES: 1. Abdominal pain secondary to acute appendicitis status post laparoscopic appendectomy, now improv ing. 2. Leukocytosis secondary to #1, improved. TIME SPENT DISCHARGING PATIENT: Forty minutes. Dictated By: OLIVIA EMERSON/BARRON Conf#: [id number] DID#: [id number]
[2016-11-08] MEDS: HEPARIN 5,000 UNIT/0.5 ML SYG SC SCH (08:24)
[2016-11-08] MEDS: SOD CHLORIDE 0.45% 1,000 ML IV SCH (08:24)
[2016-11-08 09:20] LABS: ADD SCAN DIFF NO
[2016-11-08 09:28] LABS: BASOPHILS % 0.4 % (0.0-2.0); EOSINOPHILS # 0.1 10^3/ul (0.0-0.5); EOSINOPHILS % 2.1 % (0.0-7.0); HEMATOCRIT 35.2 % (42.0-52.0); LYMPHOCYTES # 2.1 10^3/ul (0.8-2.9); LYMPHOCYTES % 39.9 % (15.0-51.0); MEAN CORPUSCULAR HEMOGLOBIN 29.9 pg (29.0-33.0); MEAN CORPUSCULAR HGB CONC 34.1 g/dl (32.0-37.0); MEAN CORPUSCULAR VOLUME 87.6 fl (82.0-101.0); MEAN PLATELET VOLUME 10.4 fl (7.4-10.4); MONOCYTE # 0.5 10^3/ul (0.3-0.9); MONOCYTES % 9.5 % (0.0-11.0); NEUTROPHIL # 2.6 10^3/ul (1.6-7.5); NEUTROPHILS % 47.9 % (39.0-77.0); PLATELET COUNT 321 10^3/UL (140-415); RED BLOOD COUNT 4.02 10^6/ul (4.70-6.10); RED CELL DISTRIBUTION WIDTH 12.3 % (11.5-14.5); WHITE BLOOD COUNT 5.4 10^3/ul (4.8-10.8)
--- NOTE | 2016-11-08 09:35 | DS ---
Date/Time of Note Date/Time of Note DATE: 11/08/16 TIME: 09:34 Discharge Summary Admission/Discharge Info Admit Date/Time Nov 07, 2016 at 10:18 Discharge Date/Time Final Diagnosis FINAL DIAGNOSES: 1. Abdominal pain secondary to acute appendicitis status post laparoscopic appendectomy, now improving. 2. Leukocytosis secondary to #1, improved. 3. Occasional marijuana use Patient Condition: Stable Hospital Course HOSPITAL COURSE: He was admitted to med/surg floor, seen by general surgery team and underwent a laparoscopic appendectomy secondary to findings of appendicitis. He had some leukocytosis on admission which was improving by the time of discharge, he was able to tolerate a p.o. diet and ambulate. He had been having some abdominal pain after surgery, so this was monitored, but this became minimal POD #2, and he is able to tolerate his diet. When cleared by surgery team today, he will be discharged home today in improved condition. DISCHARGE MEDICATIONS: 1. [place] 5/325 one tab p.o. q.6h. p.r.n. 2. Zofran 4 mg p.o. q.6h. p.r.n. 3. He will continue Augmentin at 875/125 one tab p.o. b.i.d. for 7 more days. Home Meds Active Scripts Hydrocodone/Acetaminophen ([place] 5-325 Tablet) 1 Each Tablet, 1 EACH PO Q6, #14 TAB Prov:OLIVIA GILLIS S. 11/07/16 Ondansetron Hcl* (Zofran*) 4 Mg Tab, 4 MG PO Q6H Y for NAUSEA AND OR VOMITING, # 10 TAB Prov:OLIVIA GILLIS S. 11/07/16 Amoxicillin/Potassium Clav (Amox-Clav 875-125 mg Tablet) 875-125 mg Tab, 1 TAB PO BID for 7 Days, #14 TAB Prov:OLIVIA GILLIS S. 11/07/16 Discontinued Scripts Ibuprofen* (Motrin*) 800 Mg Tab, 800 MG PO Q6, #30 TAB Prov:BOB GARCIA PA-C 10/16/16 Acetaminophen* (Tylophen*) 500 Mg Capsule, 1 CAP PO Q6H Y for PAIN AND OR ELEVATED TEMP, #20 CAP Prov:BOB GARCIA PA-C 10/16/16 Ibuprofen* (Motrin*) 600 Mg Tab, 600 MG PO Q8 for 10 Days, #30 TAB 0 Refills Prov:AUGUSTO GODINEZ PA-C 06/01/16 Pending Labs Laboratory Tests Test 11/08/16 05:10 Alanine Aminotransferase (ALT/SGPT) 26IU/L (13-69) Albumin 3.1g/dl (3.3-4.9) Albumin/Globulin Ratio 1.19 Alkaline Phosphatase 44IU/L (42-121) Anion Gap 13 (8-16) Aspartate Amino Transf (AST/SGOT) 24IU/L (15-46) Blood Urea Nitrogen 10mg/dl (7-20) Calcium Level 8.7mg/dl (8.4-10.2) Carbon Dioxide Level 30mmol/L (21-31) Chloride Level 104mmol/L (97-110) Creatinine 1.23mg/dl (0.61-1.24) Direct Bilirubin 0.00mg/dl (0.00-0.20) Globulin 2.60g/dl (1.3-3.2) Glucose Level 81mg/dl (70-220) Indirect Bilirubin 0.3mg/dl (0-1.1) Potassium Level 3.9mmol/L (3.5-5.1) Sodium Level 143mmol/L (135-144) Total Bilirubin 0.3mg/dl (0.2-1.3) Total Protein 5.7g/dl (6.1-8.1) OLIVIA GILLIS Nov 08, 2016 09:35
[2016-11-08] MEDS ORDERED: HYDROmorphONE 1 MG/ML SYG IV PRN (15:30)
--- NOTE | 2016-11-08 23:18 | PN ---
Date/Time of Note Date/Time of Note DATE: 11/08/16 TIME: 23:16 Assessment/Plan Lines/Catheters IV C[facility] Type (from [facility] Peripheral IV Assessment/Plan Chief Complaint/Hosp Course 1. Abdominal pain with leukocytosis and CT findings are suggestive of acute appendicitis, with an appendicolith s/p lap appy 11/06. -antibiotics -fluids -pain control -ice pack -advance diet as tolerated 2. Hypernatremia resolved 3. Regular daily marijuana smoker. The patient is encouraged to minimize use. Thank you Late entry Problems: Subjective 24 Hr Interval Summary Flatus. Pain improved. No f/c/n/v/cp/sob/cough/bleed/sz/rash/da/visual or neuro changes. No dysuria. Bowel function. Exam/Review of Systems Vital Signs Vitals Vital Signs Date Time Temp Pulse Resp B/P Pulse Ox O2 Delivery O2 Flow Rate FiO2 11/08/16 07:28 98.0 48 24 108/56 100 11/07/16 19:55 Room Air Intake and Output 11/07/16 11/07/16 11/08/16 15:00 23:00 07:00 Intake Total 1765 ml 1470 ml Balance 1765 ml 1470 ml Exam Free Text/Dictation GENERAL: In no acute distress, comfortable, pleasant. HEENT: Pupils equal, reactive. No scleral icterus. Mucous membranes are moist. NECK: Supple. No JVD. Trachea midline. PULMONARY: Normal respiratory effort. No wheezing. CARDIAC: S1, S2 present. ABDOMEN: Soft, min tender. No guarding. No rebound. EXTREMITIES: No edema. VASCULAR: Cap refill less than 2 seconds. NEUROLOGIC: Alert, oriented, moves all extremities grossly. Results Result Diagram: 11/08/16 0510 11/08/16 0510 KENYON LEES MD Nov 08, 2016 23:18
== END 2016-11-08 13:15 | disposition home or self-care (01) | DRG 342 ==
LOC: FTE 11:48 → MS2 18:39 → OBSVTOIN 11-07 10:18
PROVIDERS: ADMIT Hospitalist; ATTEND Hospitalist
PROC: 0DTJ4ZZ Resection of Appendix, Percutaneous Endoscopic Approach (ICD-10-PCS; principal; 2016-11-06 20:00)
DX: K35.80 Unspecified acute appendicitis (principal); E87.0 Hyperosmolality and hypernatremia; D72.829 Elevated white blood cell count, unspecified; F12.10 Cannabis abuse, uncomplicated
CPT/HCPCS: 36415; 74176; 80053; 80061; 81003; 83036; 83690; 83735; 84100; 84439; 84443; 85025; 85610; 85730; 88304; 96374; 96375; 99217; G0378; J0330; J1335; J1885; J2270; J2405; J2543; J2710; J2795; J3010; J3475; J7030

== ENCOUNTER 2017-04-27 12:52 | Emergency (ER) | payer OTHER ==
[~2017-04-27] VITALS: Ht 157.5 cm; Wt 65.5 kg
[~2017-04-27 12:52] MED LIST changes: -ACET500C5 PO; +HYDR-906 PO; -IBUP-1542 PO; -IBUP800T25 PO; +ONDA-43 PO
[2017-04-27 12:54] VITALS: Ht 157.5 cm; Wt 65.5 kg
[2017-04-27] MEDS ORDERED: POLYETHYLENE GLYCOL 17 GM PACKET PO ONE (13:30)
[2017-04-27 13:45] LABS: BASOPHILS % 0.6 % (0.0-2.0); EOSINOPHILS # 0.1 10^3/ul (0.0-0.5); EOSINOPHILS % 1.6 % (0.0-7.0); HEMATOCRIT 43.3 % (42.0-52.0); LYMPHOCYTES # 2.5 10^3/ul (0.8-2.9); LYMPHOCYTES % 50.8 % (15.0-51.0); MEAN CORPUSCULAR HEMOGLOBIN 29.6 pg (29.0-33.0); MEAN CORPUSCULAR HGB CONC 34.6 g/dl (32.0-37.0); MEAN CORPUSCULAR VOLUME 85.6 fl (82.0-101.0); MEAN PLATELET VOLUME 9.2 fl (7.4-10.4); MONOCYTE # 0.3 10^3/ul (0.3-0.9); MONOCYTES % 6.5 % (0.0-11.0); NEUTROPHILS % 40.3 % (39.0-77.0); PLATELET COUNT 321 10^3/UL (140-415); RED BLOOD COUNT 5.06 10^6/ul (4.70-6.10); RED CELL DISTRIBUTION WIDTH 13.2 % (11.5-14.5); WHITE BLOOD COUNT 4.9 10^3/ul (4.8-10.8)
[2017-04-27 14:07] LABS: ALBUMIN 4.9 g/dl (3.3-4.9); ALBUMIN/GLOBULIN RATIO 1.68; BILIRUBIN,INDIRECT 0.5 mg/dl (0-1.1); BILIRUBIN,TOTAL 0.5 mg/dl (0.2-1.3); CALCIUM 9.5 mg/dl (8.4-10.2); CREATININE 0.94 mg/dl (0.61-1.24); TOTAL PROTEIN 7.8 g/dl (6.1-8.1)
--- NOTE | 2017-04-27 14:38 | RADRPT ---
PROCEDURE: XR Abdomen. CLINICAL INDICATION: Abdominal pain. TECHNIQUE: AP abdomen x-ray. COMPARISON: None. FINDINGS: The bowel gas pattern is normal. There is no evidence of obstruction. There are no abnormal calcific ations overlying the urinary tracts.The osseus structures are unremarkable. There are metal artifact s projecting across the proximal left femur. IMPRESSION: 1. Normal KUB. Physician Judith Date Time Electronically viewed and signed by Adriel Ingram Physician on 04/27/2017 14:37 VALENTINA/
[2017-04-27] MEDS ORDERED: morphine 4 MG/ML VIAL IV STA (14:45)
[2017-04-27 14:51] LABS: ADD UMIC NO; UR ASCORBIC ACID NEGATIVE (NEGATIVE); UR BILIRUBIN (Dip) NEGATIVE (NEGATIVE); UR BLOOD (Dip) NEGATIVE (NEGATIVE); UR CLARITY CLEAR (CLEAR); UR COLOR YELLOW (YELLOW); UR GLUCOSE (Dip) NEGATIVE (NEGATIVE); UR KETONES (Dip) NEGATIVE (NEGATIVE); UR LEUKOCYTE ESTERASE (Dip) NEGATIVE Leu/ul (NEGATIVE); UR NITRITE (Dip) NEGATIVE (NEGATIVE); UR SPECIFIC GRAVITY (Dip) 1.017 (1.003-1.030); UR TOTAL PROTEIN (Dip) NEGATIVE (NEGATIVE); UR UROBILINOGEN (Dip) NEGATIVE (NEGATIVE)
[2017-04-27] MEDS ORDERED: SOD CHLORIDE 0.9% 100 ML ONE (15:22)
[2017-04-27] MEDS ORDERED: IOHEXOL 300MG/ML 150 ML BTL ONE (15:22)
--- NOTE | 2017-04-27 15:49 | ERD ---
ER Documentation Chief Complaint Date/Time DATE: 04/27/17 TIME: 15:47 Chief Complaint Complains of abdominal pain x 3 days HPI 26-year-old male patient with a past medical history of status post appendectomy November 07, 2016 presents to the ED complaining of mid lower abdominal pain that started intermittently for 3 days. Reports that he feels a lump in his lower abdomen. States that he has had some nausea but denies any vomiting. Reports that he has not had a bowel movement since 1 week ago. Reports that he has had some slight decreased appetite. Denies any dysuria, urgency, frequency, hematuria, bloody stools, diarrhea, melena, scrotal pain. ROS All systems reviewed and are negative except as per history of present illness. Medications Home Meds Active Scripts Hydrocodone/Acetaminophen ([place] 5-325 Tablet) 1 Each Tablet, 1 EACH PO Q6, #14 TAB Prov:OLIVIA GILLIS S. 11/07/16 Ondansetron Hcl* (Zofran*) 4 Mg Tab, 4 MG PO Q6H Y for NAUSEA AND OR VOMITING, # 10 TAB Prov:OLIVIA GILLIS S. 11/07/16 Amoxicillin/Potassium Clav (Amox-Clav 875-125 mg Tablet) 875-125 mg Tab, 1 TAB PO BID for 7 Days, #14 TAB Prov:OLIVIA GILLIS S. 11/07/16 Allergies Allergies: Coded Allergies: No Known Allergy (Unverified , 10/16/16) PMhx/Soc Medical and Surgical Hx: pt denies Medical Hx, pt denies Surgical Hx History of Surgery: No Anesthesia Reaction: No Hx Neurological Disorder: No Hx Respiratory Disorders: Yes Hx Cardiac Disorders: No Hx Psychiatric Problems: No Hx Miscellaneous Medical Probl: No Hx Alcohol Use: Yes (2-3 times a week) Hx Substance Use: Yes (marijuana) Hx Tobacco Use: No Physical Exam Vitals Vital Signs Date Time Temp Pulse Resp B/P Pulse Ox O2 Delivery O2 Flow Rate FiO2 04/27/17 12:54 98.3 81 20 112/67 97 Physical Exam Const: Iub-tei-qdkzexbbk, well-nourished. In no acute distress. Head: Atraumatic, normocephalic Eyes: Normal Conjunctiva without injection. No purulent discharge. ENT: Normal external ear, nose. Moist oropharynx without tonsillar exudates. Non -erythematous pharynx. Uvula midline. No drooling. No trismus. Neck: No cervical midline tenderness. Full range of motion. No meningismus. No cervical lymphadenopathy. No JVD. Resp: Clear to auscultation bilaterally. No wheezing, rhonchi, rales, or crackles. No accessory muscle use. No retractions. Cardio: Regular rate and rhythm. No murmurs, rubs or gallops. Abd: Soft, mid lower abdomen tenderness, non distended. Normal bowel sounds. No palpable masses. No rebound tenderness. No guarding. Negative McBurney's point. Negative psoas sign. Negative obturator sign. Skin: No petechiae or rashes Back: No midline tenderness. No CVA tenderness. Ext: No cyanosis, or edema. Neur: Awake and alert. Normal gait. Normal coordination. Psych: Normal Mood and Affect Results 24 hrs Laboratory Tests Test 04/27/17 13:15 04/27/17 14:10 White Blood Count 4.910^3/ul Red Blood Count 5.0610^6/ul Hemoglobin 15.0g/dl Hematocrit 43.3% Mean Corpuscular Volume 85.6fl Mean Corpuscular Hemoglobin 29.6pg Mean Corpuscular Hemoglobin Concent 34.6g/dl Red Cell Distribution Width 13.2% Platelet Count 69710^3/UL Mean Platelet Volume 9.2fl Neutrophils % 40.3% Lymphocytes % 50.8% Monocytes % 6.5% Eosinophils % 1.6% Basophils % 0.6% Nucleated Red Blood Cells % 0.0/100WBC Neutrophils # (Manual) 210^3/ul Lymphocytes # 2.510^3/ul Monocytes # 0.310^3/ul Eosinophils # 0.110^3/ul Basophils # 0.010^3/ul Nucleated Red Blood Cells # 0.010^3/ul Sodium Level 148mmol/L Potassium Level 4.0mmol/L Chloride Level 104mmol/L Carbon Dioxide Level 26mmol/L Anion Gap 22 Blood Urea Nitrogen 11mg/dl Creatinine 0.94mg/dl Glucose Level 81mg/dl Calcium Level 9.5mg/dl Total Bilirubin 0.5mg/dl Direct Bilirubin 0.00mg/dl Indirect Bilirubin 0.5mg/dl Aspartate Amino Transf (AST/SGOT) 34IU/L Alanine Aminotransferase (ALT/SGPT) 30IU/L Alkaline Phosphatase 54IU/L Total Protein 7.8g/dl Albumin 4.9g/dl Globulin 2.90g/dl Albumin/Globulin Ratio 1.68 Lipase 47U/L Urine Color YELLOW Urine Clarity CLEAR Urine pH 5.0 Urine Specific [place] 1.017 Urine Ketones NEGATIVEmg/dL Urine Nitrite NEGATIVEmg/dL Urine Bilirubin NEGATIVEmg/dL Urine Urobilinogen NEGATIVEmg/dL Urine Leukocyte Esterase NEGATIVELeu/ul Urine Hemoglobin NEGATIVEmg/dL Urine Glucose NEGATIVEmg/dL Urine Total Protein NEGATIVEmg/dl Current Medications Medications (Trade) Dose Ordered Sig/Brady Route PRN Reason Start Time Stop Time Status Last Admin Dose Admin Polyethylene Glycol (Miralax) 17 gm ONCE ONCE PO 04/27/17 13:30 04/27/17 13:31 DC 04/27/17 13:47 Morphine Sulfate (morphine) 4 mg ONCE STAT IV 04/27/17 14:45 04/27/17 14:47 DC 04/27/17 15:13 IV Flush 10 ml 10 ml STK-MED ONCE .ROUTE 04/27/17 15:22 04/27/17 15:23 DC 04/27/17 15:36 Sodium Chloride (NS) 100 ml @ ud STK-MED ONCE .ROUTE 04/27/17 15:22 04/27/17 15:23 DC 04/27/17 15:36 Iohexol 150 ml 150 ml STK-MED ONCE .ROUTE 04/27/17 15:22 04/27/17 15:23 DC 04/27/17 15:36 Sodium Chloride (NS) 1,000 ml @ 1,000 mls/hr Q1H ONCE IV 04/27/17 16:00 04/27/17 16:59 DC 04/27/17 16:02 Procedures/MDM 26-year-old male patient with a past medical history of status post appendectomy on November 07, 2016 presents the ED complaining of abdominal pain that started 3 days ago. Patient is afebrile and nontoxic-appearing. Patient has normal vital signs. Patient was initially given Miralax without relief of his symptoms. Patient was further worked up with CBC, CMP, lipase, UA, CT abdomen and pelvis with contrast. Patient's pain and symptoms have improved after treatment with 4 mg IV morphine. CBC: No leukocytosis. No e/o of systemic infection. No e/o anemia. CMP: No e/o severe acidosis, alkalosis, renal failure, diabetic ketoacidosis, liver disease Lipase within normal limits. Urine: No leukocyte esterase, no nitrites, no hematuria. PROCEDURE: CT Abdomen and Pelvis with contrast. CLINICAL INDICATION: Abdominal pain. TECHNIQUE: CT scan of the abdomen and pelvis with contrast was performed on a multi-detector high-resolution CT scanner. The patient was scanned following the uncomplicated intravenous administration of 100 cc of Omnipaque 300. Coronal and sagittal reformatted images were obtained from the axial source images. One or more of the following dose reduction techniques were used: Automated exposure control, adjustment of the mA and/or kV according to patient size, use of iterative reconstruction technique. Images were reviewed on a high -resolution PACS workstation. The total exam CTDI equals 5.18 mGy and the total exam DLP equals 278.33 mGy-cm. COMPARISON: CT from 11/06/2016. FINDINGS: CT abdomen: Minimal bilateral lower lobe dependent atelectatic changes are present. Otherwise, the lung bases are clear. The heart size is normal, without pericardial thickening or effusion. The liver is normal in size and density without focal mass or intrahepatic biliary dilatation. The spleen is normal in size and homogeneous in density. The stomach is partially collapsed, but is grossly unremarkable. The pancreas as visualized is normal. The gallbladder is unremarkable. The biliary tree is unremarkable without evidence for biliary dilatation. The adrenal glands are symmetric and normal. The kidneys are unremarkable. No renal calculus or obstructive uropathy or mass lesion is seen. The aorta is of normal caliber. There is no retroperitoneal lymphadenopathy. The howard hepatis region is clear. The small bowel and mesentery, as visualized , are unremarkable. CT pelvis: The small bowel loops situated within the pelvis are unremarkable. The pelvic organs are normal. The pelvic sidewalls and inguinal regions are clear. The sigmoid colon and rectum are unremarkable. The appendix is surgically absent. No mass, lymphadenopathy, or free fluid is seen. The bladder is normal. There is congenital lumbar spinal stenosis with the AP diameter of the lumbar spinal canal measuring 7-8 mm. The surrounding osseous structures are otherwise unremarkable. No osteolytic or osteoblastic lesion is detected. IMPRESSION: No mass, lymphadenopathy, or focal acute inflammatory process is identified. PROCEDURE: XR Abdomen. CLINICAL INDICATION: Abdominal pain. TECHNIQUE: AP abdomen x-ray. COMPARISON: None. FINDINGS: The bowel gas pattern is normal. There is no evidence of obstruction. There are no abnormal calcifications overlying the urinary tracts.The osseus structures are unremarkable. There are metal artifacts projecting across the proximal left femur. IMPRESSION: 1. Normal KUB. Low suspicion for gastritis, GERD, peptic ulcer disease, cholecystitis, choledocholithiasis, cholangitis, pancreatitis, appendicitis, bowel obstruction , ileus, volvulus, nephrolithiasis, pyelonephritis, hepatitis, perforated viscus , diverticulitis, abdominal hernia, acute abdomen, mesenteric ischemia or other emergent conditions. Discharge medications: Denied wanting medications Follow up with primary care physician in 1-2 days for referral to student education specialist. Instructed patient to return to the ED sooner for any worsening symptoms. Patient's questions were answered. Patient understood and agreed with discharge plan. Patient discharged stable. Departure Diagnosis: Primary Impression: Abdominal pain Abdominal location: unspecified location Qualified Code: R10.9 - Abdominal pain, unspecified location Condition: Stable Patient Instructions: Abdominal Pain Referrals: [facility] (PCP) [facility] YOU HAVE RECEIVED A MEDICAL SCREENING EXAM AND THE RESULTS INDICATE THAT YOU DO NOT HAVE A CONDITION THAT REQUIRES URGENT TREATMENT IN THE EMERGENCY DEPARTMENT. FURTHER EVALUATION AND TREATMENT OF YOUR CONDITION CAN WAIT UNTIL YOU ARE SEEN IN YOUR DOCTORS OFFICE WITHIN THE NEXT 1-2 DAYS. IT IS YOUR RESPONSIBILITY TO MAKE AN APPOINTMENT FOR FOLOW-UP CARE. IF YOU HAVE A PRIMARY DOCTOR --you should call your primary doctor and schedule an appointment IF YOU DO NOT HAVE A PRIMARY DOCTOR YOU CAN CALL OUR PHYSICIAN REFERRAL HOTLINE AT IF YOU CAN NOT AFFORD TO SEE A PHYSICIAN YOU CAN CHOSE FROM THE FOLLOWING FORMERLY [facility], [facility] CLINICS [facility] [address] [facility]. [facility] [address] [facility]. [facility] [address] [facility] [address] [facility]. [facility] [address] [facility]. [facility]. [address] [facility] [facility] YOU HAVE RECEIVED A MEDICAL SCREENING EXAM AND THE RESULTS INDICATE THAT YOU DO NOT HAVE A CONDITION THAT REQUIRES URGENT TREATMENT IN THE EMERGENCY DEPARTMENT. FURTHER EVALUATION AND TREATMENT OF YOUR CONDITION CAN WAIT UNTIL YOU ARE SEEN IN YOUR DOCTORS OFFICE WITHIN THE NEXT 1-2 DAYS. IT IS YOUR RESPONSIBILITY TO MAKE AN APPOINTMENT FOR FOLOW-UP CARE. IF YOU HAVE A PRIMARY DOCTOR --you should call your primary doctor and schedule and appointment IF YOU DO NOT HAVE A PRIMARY DOCTOR YOU CAN CALL OUR PHYSICIAN REFERRAL HOTLINE AT . IF YOU CAN NOT AFFORD TO SEE A PHYSICIAN YOU CAN CHOSE FROM THE FOLLOWING [facility] INSTITUTIONS: [facility] [address] [place] [address] [facility] [address] [place], [place] [id number] [place] [address] [address] [place] [address] [facility]SPECIALTIES Additional Instructions: Call your primary care doctor TOMORROW for an appointment during the next 2-3 days.See the doctor sooner or return here if your condition worsens before your appointment time. HUGO FRANKEL PA-C Apr 27, 2017 15:49 appointment time. HUGO FRANKEL PA-C Apr 27, 2017 15:49
--- NOTE | 2017-04-27 15:58 | RADRPT ---
PROCEDURE: CT Abdomen and Pelvis with contrast. CLINICAL INDICATION: Abdominal pain. TECHNIQUE: CT scan of the abdomen and pelvis with contrast was performed on a multi-detector high- resolution CT scanner. The patient was scanned following the uncomplicated intravenous administrati on of 100 cc of Omnipaque 300. Coronal and sagittal reformatted images were obtained from the axial source images. One or more of the following dose reduction techniques were used: Automated exposur e control, adjustment of the mA and/or kV according to patient size, use of iterative reconstructio n technique. Images were reviewed on a high-resolution PACS workstation. The total exam CTDI equals 5.18 mGy and the total exam DLP equals 278.33 mGy-cm. COMPARISON: CT from 11/06/2016. FINDINGS: CT abdomen: Minimal bilateral lower lobe dependent atelectatic changes are present. Otherwise, the lung bases are clear. The heart size is normal, without pericardial thickening or effusion. The liver is normal in size and density without focal mass or intrahepatic biliary dilatation. The spleen is normal in size and homogeneous in density. The stomach is partially collapsed, but is judith ssly unremarkable. The pancreas as visualized is normal. The gallbladder is unremarkable. The fidelia iary tree is unremarkable without evidence for biliary dilatation. The adrenal glands are symmetric and normal. The kidneys are unremarkable. No renal calculus or obstructive uropathy or mass lesio n is seen. The aorta is of normal caliber. There is no retroperitoneal lymphadenopathy. The howard hepatis re gion is clear. The small bowel and mesentery, as visualized, are unremarkable. CT pelvis: The small bowel loops situated within the pelvis are unremarkable. The pelvic organs are normal. T he pelvic sidewalls and inguinal regions are clear. The sigmoid colon and rectum are unremarkable. The appendix is surgically absent. No mass, lymphadenopathy, or free fluid is seen. The bladder is normal. There is congenital lumbar spinal stenosis with the AP diameter of the lumbar spinal canal measuring 7-8 mm. The surrounding osseous structures are otherwise unremarkable. No osteolytic or osteoblas tic lesion is detected. IMPRESSION: No mass, lymphadenopathy, or focal acute inflammatory process is identified. RPTAT: JJ .Sridhar Das MD, Date Time Electronically viewed and signed by .Sridhar Das MD, MD on 04/27/2017 15:57 .A/
[2017-04-27] MEDS ORDERED: SOD CHLORIDE 0.9% 1,000 ML IV ONE (16:00)
== END 2017-04-27 16:56 | disposition home or self-care (01) ==
LOC: FTE 12:52
DX: R10.30 Lower abdominal pain, unspecified (principal)
CPT/HCPCS: 74010; 74177; 80053; 81003; 83690; 85025; 96374; J2270; J7030; Q9967; Z7502; Z7610

== ENCOUNTER 2018-07-25 14:34 | Emergency (ER) | END 2018-07-25 16:13 | disposition home or self-care (01) ==

== ENCOUNTER 2018-10-07 16:59 | Emergency (ER) | payer SELFPAY ==
[~2018-10-07] VITALS: Ht 172.7 cm; Wt 65.0 kg
[~2018-10-07 16:59] MED LIST changes: +HYDR-4011 PO; -HYDR-906 PO; +IBUP-1542 PO; -ONDA-43 PO; +ONDA4TAB13 PO; +SODI126M NASAL
[2018-10-07 17:03] VITALS: BP 123/84; PULSE 90; RESP 16; Ht 172.7 cm; Wt 65.0 kg
== END 2018-10-07 19:05 | disposition left against medical advice (07) ==
LOC: FTE 16:59
DX: Z53.21 Procedure and treatment not carried out due to patient leaving prior to being seen by health care provider (principal)